=== PATIENT | male | born 1950 | race Caucasian/White ===

== ENCOUNTER 2023-05-29 11:40 | Inpatient (IN) | payer OTHER ==
[~2023-05-29] VITALS: Ht 167.6 cm; Wt 75.3 kg
[2023-05-29 12:41] LABS: BASOPHILS # (AUTO) 0.1 K/UL (0.0-0.2); BASOPHILS % (AUTO) 0.9 % (0.0-2.0); EOSINOPHILS # (AUTO) 0.2 K/uL (0.0-0.7); EOSINOPHILS % (AUTO) 2.7 % (0.0-7.0); HEMATOCRIT 41.9 % (36.7-47.1); HEMOGLOBIN 14.1 g/dL (12.5-16.3); LYMPHOCYTES # (AUTO) 2.6 K/uL (0.8-4.8); LYMPHOCYTES % (AUTO) 32.4 % (20.5-51.5); MEAN CORPUSCULAR HEMOGLOBIN 31.6 uug (23.8-33.4); MEAN CORPUSCULAR HGB CONC 34 g/dL (32.5-36.3); MEAN CORPUSCULAR VOLUME 94.4 fL (73.0-96.2); MONOCYTES # (AUTO) 0.9 K/uL (0.1-1.30); MONOCYTES % (AUTO) 10.7 % (0.0-11.0); NEUTROPHILS # (AUTO) 4.3 K/uL (1.8-8.9); NEUTROPHILS % (AUTO) 53.3 % (38.5-71.5); PLATELET COUNT (AUTO) 258 K/uL (152-348); RED BLOOD CELL COUNT(AUTO) 4.44 MIL/uL (4.06-5.63); RED CELL DISTRIBUTION WIDTH 14.6 % (12.1-16.2)
[2023-05-29 12:46] LABS: DIFFERENTIAL COMMENT 1
[2023-05-29 12:48] LABS: *BILIRUBIN,URIN NEGATIVE (NEGATIVE); *BLOOD, URINE NEGATIVE (NEGATIVE); *CLARITY,URINE CLEAR (CLEAR); *COLOR,URINE YELLOW (YELLOW); *KETONES,URINE NEGATIVE (NEGATIVE); *PROTEIN,URINE NEGATIVE (NEGATIVE); *UROBILINOGEN,URINE 0.2 E.U./dl (NORMAL); LEUKOCYTE ESTERASE ,URINE NEGATIVE (NEGATIVE); NITRITE, URINE NEGATIVE (NEGATIVE); UGLUCOSE NEGATIVE (NEGATIVE)
[2023-05-29 12:51] LABS: CARBON DIOXIDE 30 mmol/L (21-32); CHLORIDE 102 mmol/L (98-107); CREATININE 1.3 mg/dL (0.6-1.3); GLUCOSE 118 mg/dL (74-106); POTASSIUM 2.9 mmol/L (3.5-5.1); SODIUM SERUM 141 mmol/L (136-145); UREA NITROGEN, BLOOD 31 mg/dL (7-18)
[2023-05-29 13:04] LABS: ALANINE AMINOTRANSFERASE 29 U/L (16-63); ALBUMIN 3.3 g/dL (3.4-5.0); ALKALINE PHOSPHATASE 85 U/L (50-136); ASPARTATE AMINOTRANSFERASE 16 U/L (15-37); BILIRUBIN,DIRECT 0.2 mg/dL (0.0-0.2); BILIRUBIN,TOTAL 0.6 mg/dL (0.2-1.0); NT-PRO BNP 128 pg/mL (0-125); TOTAL PROTEIN, SERUM 6.4 g/dL (6.4-8.2)
[2023-05-29] MEDS ORDERED: POTASSIUM CHLORIDE 50 ML IV SCH (14:45)
[2023-05-29] MEDS ORDERED: POTASSIUM CHLORIDE 20 MEQ TAB.PRT.SR PO ONE (14:45)
[2023-05-29] MEDS: MAGNESIUM SULFATE/D5W 100 ML IV SCH ×2 (15:49→23:01)
[2023-05-29 18:09] VITALS: BP 117/70; TEMP 98; O2SAT 94
[2023-05-29] MEDS ORDERED: REMEDY ESSENTIAL ZINC PASTE 113 GM TP PRN (19:00)
[2023-05-29] MEDS ORDERED: MAGNESIUM HYDROXIDE 30 ML LIQUID UDC PO PRN (19:00)
[2023-05-29] MEDS ORDERED: ACETAMINOPHEN 325 MG TABLET PO PRN (19:00)
[2023-05-29] MEDS ORDERED: ZOLPIDEM 5 MG TABLET PO PRN (19:00)
[2023-05-29] MEDS ORDERED: ONDANSETRON 4 MG/2 ML VIAL IV PRN (19:00)
[2023-05-29 20:31] VITALS: BP 95/57; TEMP 98.4; O2SAT 93
[2023-05-29] MEDS: TAMSULOSIN HCL 0.4 MG CAP.SR.24H PO SCH (21:21)
[2023-05-29] MEDS: ENOXAPARIN SODIUM 40 MG/0.4 ML DISP.SYRIN SQ SCH (21:22)
[2023-05-29] MEDS ORDERED: MAGNESIUM SULFATE/D5W 100 ML ONE (22:35)
[2023-05-30 04:20] VITALS: BP 110/61; TEMP 97.6; O2SAT 94
[2023-05-30] MEDS: LEVOTHYROXINE SODIUM 125 MCG TABLET PO SCH (06:17)
[2023-05-30 07:17] LABS: BASOPHILS # (AUTO) 0.1 K/UL (0.0-0.2); BASOPHILS % (AUTO) 0.9 % (0.0-2.0); EOSINOPHILS # (AUTO) 0.2 K/uL (0.0-0.7); EOSINOPHILS % (AUTO) 3.4 % (0.0-7.0); HEMATOCRIT 39.1 % (36.7-47.1); LYMPHOCYTES # (AUTO) 2.4 K/uL (0.8-4.8); LYMPHOCYTES % (AUTO) 40.1 % (20.5-51.5); MEAN CORPUSCULAR HEMOGLOBIN 31.6 uug (23.8-33.4); MEAN CORPUSCULAR HGB CONC 33 g/dL (32.5-36.3); MEAN CORPUSCULAR VOLUME 94.9 fL (73.0-96.2); MONOCYTES # (AUTO) 0.7 K/uL (0.1-1.30); MONOCYTES % (AUTO) 11.8 % (0.0-11.0); NEUTROPHILS # (AUTO) 2.7 K/uL (1.8-8.9); NEUTROPHILS % (AUTO) 43.8 % (38.5-71.5); PLATELET COUNT (AUTO) 224 K/uL (152-348); RED BLOOD CELL COUNT(AUTO) 4.12 MIL/uL (4.06-5.63); RED CELL DISTRIBUTION WIDTH 14.3 % (12.1-16.2); WHITE BLOOD COUNT (AUTO) 6.1 K/uL (3.6-10.2)
[2023-05-30 07:26] LABS: DIFFERENTIAL COMMENT 1
[2023-05-30 07:30] LABS: CALCIUM 8.5 mg/dL (8.5-10.1); CARBON DIOXIDE 27 mmol/L (21-32); CHLORIDE 108 mmol/L (98-107); CREATININE 1.1 mg/dL (0.6-1.3); GLUCOSE 77 mg/dL (74-106); MAGNESIUM 2.5 mg/dL (1.8-2.4); PHOSPHOROUS 3.6 mg/dL (2.5-4.9); SODIUM SERUM 140 mmol/L (136-145); UREA NITROGEN, BLOOD 22 mg/dL (7-18)
[2023-05-30] MEDS: ASPIRIN 81 MG TAB.CHEW PO SCH (09:02)
[2023-05-30] MEDS: PANTOPRAZOLE SODIUM 40 MG VIAL IV SCH (09:02)
[2023-05-30] MEDS: FUROSEMIDE 40 MG TABLET PO SCH (09:02)
[2023-05-30] MEDS: LOSARTAN POTASSIUM 50 MG TABLET PO SCH (09:06)
[2023-05-30] MEDS: AMLODIPINE 10 MG TABLET PO SCH (09:07)
[2023-05-30 11:51] VITALS: BP 134/68; TEMP 98.4; O2SAT 92
[2023-05-30] MEDS ORDERED: LOSA-22 PO (14:52)
[2023-05-30] MEDS ORDERED: ASPI-1101 PO (14:53)
[2023-05-30] MEDS ORDERED: DONE10TA44 PO (14:54)
[2023-05-30] MEDS ORDERED: FURO40TA5 PO (14:55)
[2023-05-30] MEDS ORDERED: LEVO125T8 PO (14:56)
[2023-05-30] MEDS ORDERED: TAMS-3 PO (15:01)
[2023-05-30] MEDS ORDERED: PANT40TA49 PO (15:01)
[2023-05-30 16:16] LABS: THYROID STIMULATING HORMONE 4.137 mIU/mL (0.358-3.740)
[2023-05-30 16:20] VITALS: BP 102/60; TEMP 98.6; O2SAT 95
[2023-05-30 20:17] VITALS: BP 114/67; TEMP 99.2; O2SAT 93
[2023-05-30] MEDS: ENOXAPARIN SODIUM 40 MG/0.4 ML DISP.SYRIN SQ SCH (21:00)
[2023-05-30] MEDS: TAMSULOSIN HCL 0.4 MG CAP.SR.24H PO SCH (21:03)
[2023-05-31 04:20] VITALS: BP 99/53; TEMP 98; O2SAT 93
[2023-05-31 06:55] LABS: BASOPHILS # (AUTO) 0.1 K/UL (0.0-0.2); BASOPHILS % (AUTO) 0.8 % (0.0-2.0); EOSINOPHILS # (AUTO) 0.2 K/uL (0.0-0.7); EOSINOPHILS % (AUTO) 3.1 % (0.0-7.0); HEMOGLOBIN 13.3 g/dL (12.5-16.3); LYMPHOCYTES # (AUTO) 2.5 K/uL (0.8-4.8); LYMPHOCYTES % (AUTO) 38.1 % (20.5-51.5); MEAN CORPUSCULAR HEMOGLOBIN 31.8 uug (23.8-33.4); MEAN CORPUSCULAR HGB CONC 34 g/dL (32.5-36.3); MEAN CORPUSCULAR VOLUME 93.5 fL (73.0-96.2); MONOCYTES % (AUTO) 14.4 % (0.0-11.0); NEUTROPHILS # (AUTO) 2.9 K/uL (1.8-8.9); NEUTROPHILS % (AUTO) 43.6 % (38.5-71.5); PLATELET COUNT (AUTO) 240 K/uL (152-348); RED BLOOD CELL COUNT(AUTO) 4.18 MIL/uL (4.06-5.63); WHITE BLOOD COUNT (AUTO) 6.7 K/uL (3.6-10.2)
[2023-05-31 07:19] LABS: DIFFERENTIAL COMMENT 1
[2023-05-31 07:35] LABS: CALCIUM 8.7 mg/dL (8.5-10.1); CREATININE 1.2 mg/dL (0.6-1.3); MAGNESIUM 2.3 mg/dL (1.8-2.4); PHOSPHOROUS 3.8 mg/dL (2.5-4.9); POTASSIUM 3.4 mmol/L (3.5-5.1)
[2023-05-31] MEDS: LEVOTHYROXINE SODIUM 125 MCG TABLET PO SCH ×2 (07:42→08:08)
[2023-05-31] MEDS: FUROSEMIDE 40 MG TABLET PO SCH (08:08)
[2023-05-31] MEDS: ASPIRIN 81 MG TAB.CHEW PO SCH (08:08)
[2023-05-31] MEDS: PANTOPRAZOLE SODIUM 40 MG VIAL IV SCH (08:08)
[2023-05-31] MEDS: AMLODIPINE 10 MG TABLET PO SCH (08:08)
[2023-05-31] MEDS: LOSARTAN POTASSIUM 50 MG TABLET PO SCH (08:09)
[2023-05-31] MEDS ORDERED: POTASSIUM CHLORIDE 20 MEQ TAB.PRT.SR PO ONE (10:00)
[2023-05-31 12:00] VITALS: BP 104/56; TEMP 97.7; O2SAT 96
[2023-05-31 16:00] VITALS: BP 109/61; TEMP 98.3; O2SAT 93
[2023-05-31] MEDS: TAMSULOSIN HCL 0.4 MG CAP.SR.24H PO SCH (20:27)
[2023-05-31] MEDS: ENOXAPARIN SODIUM 40 MG/0.4 ML DISP.SYRIN SQ SCH (20:28)
[2023-05-31 23:44] VITALS: BP 103/67; TEMP 98; O2SAT 99
[2023-06-01 04:29] VITALS: BP 95/63; TEMP 98.2; O2SAT 98
[2023-06-01 06:53] LABS: BASOPHILS % (AUTO) 0.7 % (0.0-2.0); EOSINOPHILS # (AUTO) 0.2 K/uL (0.0-0.7); EOSINOPHILS % (AUTO) 2.5 % (0.0-7.0); HEMATOCRIT 40.7 % (36.7-47.1); LYMPHOCYTES # (AUTO) 1.7 K/uL (0.8-4.8); LYMPHOCYTES % (AUTO) 25.7 % (20.5-51.5); MEAN CORPUSCULAR HEMOGLOBIN 31.7 uug (23.8-33.4); MEAN CORPUSCULAR HGB CONC 34 g/dL (32.5-36.3); MEAN CORPUSCULAR VOLUME 92.6 fL (73.0-96.2); MONOCYTES % (AUTO) 14.9 % (0.0-11.0); NEUTROPHILS # (AUTO) 3.7 K/uL (1.8-8.9); NEUTROPHILS % (AUTO) 56.2 % (38.5-71.5); PLATELET COUNT (AUTO) 247 K/uL (152-348); RED CELL DISTRIBUTION WIDTH 14.5 % (12.1-16.2); WHITE BLOOD COUNT (AUTO) 6.6 K/uL (3.6-10.2)
[2023-06-01] MEDS ORDERED: PANTOPRAZOLE SODIUM 40 MG TABLET.DR PO SCH (07:00)
[2023-06-01 07:08] LABS: DIFFERENTIAL COMMENT 1
[2023-06-01 08:20] LABS: CALCIUM 8.9 mg/dL (8.5-10.1); CARBON DIOXIDE 26 mmol/L (21-32); CHLORIDE 100 mmol/L (98-107); CREATININE 1.2 mg/dL (0.6-1.3); GLUCOSE 100 mg/dL (74-106); MAGNESIUM 2.2 mg/dL (1.8-2.4); PHOSPHOROUS 4.1 mg/dL (2.5-4.9); SODIUM SERUM 136 mmol/L (136-145); UREA NITROGEN, BLOOD 25 mg/dL (7-18)
[2023-06-01] MEDS: LOSARTAN POTASSIUM 50 MG TABLET PO SCH (08:41)
[2023-06-01] MEDS: ASPIRIN 81 MG TAB.CHEW PO SCH (08:41)
[2023-06-01] MEDS: AMLODIPINE 10 MG TABLET PO SCH (08:41)
[2023-06-01] MEDS: FUROSEMIDE 40 MG TABLET PO SCH (08:44)
[2023-06-01 11:57] VITALS: BP 93/47; TEMP 98.3; O2SAT 94
[2023-06-01 16:00] VITALS: BP 97/51; TEMP 97.1; O2SAT 93
[2023-06-01 20:00] VITALS: BP 97/57; TEMP 98.8; O2SAT 95
== END 2023-06-01 21:00 | disposition home health service (06) | DRG 641 ==
LOC: ER 11:40 → MEDSURG3 17:03
PROVIDERS: ADMIT Nurse Practitioner Acute Care; ATTEND Nurse Practitioner Acute Care
DX: E87.6 Hypokalemia (principal); I50.32 Chronic diastolic (congestive) heart failure; R53.1 Weakness; I11.0 Hypertensive heart disease with heart failure; E03.9 Hypothyroidism, unspecified; N40.0 Benign prostatic hyperplasia without lower urinary tract symptoms; Z85.048 Personal history of other malignant neoplasm of rectum, rectosigmoid junction, and anus; G89.29 Other chronic pain; M16.12 Unilateral primary osteoarthritis, left hip; M17.12 Unilateral primary osteoarthritis, left knee; R26.2 Difficulty in walking, not elsewhere classified; E88.09 Other disorders of plasma-protein metabolism, not elsewhere classified
CPT/HCPCS: 36415; 70450; 71045; 72131; 73700; 83605; 83735; 84100; 84443; 84484; 85025; 85651; 85730; 87040; 93005; 93307; C9113; G0378; J1650; J3475; J3480; J7040